=== PATIENT | female | born 2000 | race Caucasian/White ===

== ENCOUNTER 2019-01-09 19:01 | Emergency (ER) | payer OTHER ==
--- OUTSIDE RECORDS SUMMARY | 2019-01-09 19:16 | XMS REPORT | Continuity of Care Document ---
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 Payers Date Identification Numbers Payment Provider Subscriber Effective: 2018 Policy Number: [id number] [facility] Rossi Schwartz PayID: [id number] [place] [address] Advance Directives Description No Information Available Problems Description No Information Family History Date Family Member(s) Observation Comments Father Asthma Mother No Current Problems Social History Type Date Description Comments Sex Unknown Education Currently working on bachelor's Going to [employer] - getting pre-reqs degree done right now, then unsure of plans Marital Status Single Allergies, Adverse Reactions, Alerts Description No Known Drug Allergies Medications Medication Date Status Form Strength Qnty SIG Indications Ordering Provider Flovent HFA Active Aerosol 44mcg/Act 10.600g 2 puffs J45.30 Ham, 019 m twice daily DO Enrique Proair HFA Active Aerosol 108(90Base) 17gm 2 puffs J45.30 Ham , 019 mcg/Act every 4-6 zhane Nunez as DO needed for cough, sob, wheezing Dapsone Active Gel 5% apply to Unknown 000 affected area twice a day Immunizations CPT Code Status Date Vaccine Lot # [id number] Given 12/20/2018 Menactra/Menveo Meningococcal Vaccine [id number] 10036 Given 12/20/2018 Meningococcal B(Bexsero)protn otrMembran Vesicle [id number] Vccn 2 [place] [address] Given 05/02/2002 DTaP Immunization 7 Yrs & Younger 71039 Given 05/03/1999 DTaP Immunization 7 Yrs & Younger 14080 Given 1998 Hepatitis B Vac Ped/Adolescent 3 Dose Schedule 74678 Given 1998 DTaP Immunization 7 Yrs & Younger 22517 Given 1998 DTaP Immunization 7 Yrs & Younger 26974 Given 1998 DTaP Immunization 7 Yrs & Younger 45081 Given 1998 Hepatitis B Vac Ped/Adolescent 3 Dose Schedule 16531 Given 1998 Hepatitis B Vac Ped/Adolescent 3 Dose Schedule Vital Signs Date Vital Result Comment 12/20/2018 10:01am Weight 152.00 lb Heart Rate 80 /min BP Systolic 132 mmHg BP Diastolic 80 mmHg Respiratory Rate 18 /min Height 64 inches 5'4" O2 % BldC Oximetry 13262 % BMI (Body Mass Index) 26.1 kg/m2 Results Description No Information Available Procedures Date Code Description Status 12/20/2018 58213 Brief Emotional/Behav Assessment W/ Scoring Doc Per Completed Standard Inst 12/20/2018 65481 Measure Blood Oxygen Level Single Determination Completed 12/20/2018 15634 Spirometry /PFT With And Without Bronchodialator Completed (Bronchospasm) Encounters Description No Information Available Plan of Treatment Future Appointment(s):01/31/2019 9:15 am - [facility] - Kamini Layne PAZ00.00 Encounter for general adult medical examination without abnoComments:Screening for instructor creeler cancers (cervical, vaginal, vulvar): none needed yetScreening for colon cancer: noreason for early screenRecommend periodic ophtho and dental careHealthy lifestyle encouraged: Sleep target 7-8 hours per dayExercise, target 30 - 60 min moderate to vigorous exercise per day , with 5 days of week aerobic, 2 days per week strength and flexibility. Hydration, target 2.5 qrts per day of total fluids. Diet. Low fat/ cholRecommend annual wellness visit.J45.30 Mild persistent asthma, uncomplicatedNew Medication:Flovent HFA 44 mcg/Act - 2 puffs twice dailyProair HFA 108(90 Base) mcg/Act - 2 puffs every 4-6 hours as needed for cough, sob, wheezingComments:Will try floventAlbuterol prnCall with worsening symptomsFollow up:6 weeks f/u asthma with PFT and Men B #2Z13.89 Encounter for screening for other [id number] Encounter for immunization
[2019-01-09 20:03] VITALS: BP 143/85
--- NOTE | 2019-01-09 20:25 | UC ---
Abdominal Pain Female HPI - HPI Summary HPI Summary: 19 yo female with the acute onset of abd pain that occurred a week ago while driving pain has been constant nausea and anorexia no f/c no vomiting or diarrhea no UTI symptoms no vag d/c or itch pain occasionally radiates to her back has not keep her up at night - History of Current Complaint Chief Complaint: UCAbdominalPain Stated Complaint: NAUSEA Time Seen by Provider: 01/09/19 20:06 Hx Obtained From: Patient Hx Last Menstrual Period: 12/30/18 Onset/Duration: Sudden Onset, Lasting Days Timing: Constant Severity Initially: Mild Severity Currently: Mild Pain Intensity: 3 Pain Scale Used: 0-10 Numeric Location: Diffuse Radiates to: Back Character: Aching Aggravating Factor(s): Nothing Alleviating Factor(s): Nothing Associated Signs and Symptoms: Positive: Negative, Nausea Allergies/Adverse Reactions: Allergies Allergy/AdvReac Type Severity Reaction Status Date / Time No Known Allergies Allergy Verified 01/09/19 20:03 Home Medications: Home Medications Albuterol HFA INHALER* [Ventolin HFA Inhaler*] 2 puff INH Q4H PRN 01/09/19 [ History Confirmed 01/09/19] Dapsone 5 % EX DAILY 01/09/19 [History Confirmed 01/09/19] Fluticasone HFA 110 mcg(NF) [Flovent HFA 110 mcg(NF)] 2 puff INH BID 01/09/19 [ History Confirmed 01/09/19] PMH/Surg Hx/FS Hx/Imm Hx Previously Healthy: Yes - Surgical History Surgical History: None - Family History Known Family History: Positive: Hypertension - Social History Alcohol Use: None Substance Use Type: None Smoking Status (MU): Never Smoked Tobacco Review of Systems All Other Systems Reviewed And Are Negative: Yes Constitutional: Positive: Negative Skin: Positive: Negative Eyes: Positive: Negative ENT: Positive: Negative Respiratory: Positive: Negative Cardiovascular: Positive: Negative Gastrointestinal: Positive: Abdominal Pain, Nausea Genitourinary: Positive: Negative Motor: Positive: Negative Neurovascular: Positive: Negative Musculoskeletal: Positive: Negative Neurological: Positive: Negative Psychological: Positive: Negative Physical Exam Triage Information Reviewed: Yes Appearance: Well-Appearing, No Pain Distress, Well-Nourished Vital Signs: Initial Vital Signs Temp 98.8 F 01/09/19 19:58 Pulse 95 01/09/19 19:58 Resp 17 01/09/19 19:58 BP 143/85 01/09/19 19:58 Pulse Ox 100 01/09/19 19:58 Vital Signs Reviewed: Yes Eyes: Positive: Conjunctiva Clear ENT: Positive: Hearing grossly normal. Negative: Nasal congestion, Nasal drainage, Trismus, Muffled voice, Hoarse voice Neck: Positive: Supple, Nontender, No Lymphadenopathy Respiratory: Positive: Lungs clear, Normal breath sounds, No respiratory distress, No accessory muscle use Cardiovascular: Positive: RRR, No Murmur Abdomen Description: Positive: Soft. Negative: Nontender - see image, Bruit, CVA Tenderness (R), CVA Tenderness (L), Distended, Guarding Bowel Sounds: Positive: Present Pelvic Exam: Positive: External Exam Normal, Other - Pelvic exam done by Jessica CASTILLO, normal ext genitalia, hymen intact, unable to do speculem exam or bimanual. Musculoskeletal: Positive: ROM Intact, No Edema Neurological: Positive: Alert Psychological Exam: Normal Images Front/Back of Body, Lg ([place]): 1 - tender here Abd Pain Female Course/Dx - Differential Dx/Diagnosis Provider Diagnosis: Abdominal pain of unknown cause Discharge - Sign-Out/Discharge Documenting (check all that apply): Patient Departure All imaging exams completed and their final reports reviewed: No Studies - Discharge Plan Condition: Stable Disposition: HOME Patient Education Materials: Abdominal Pain (ED) Referrals: Kamini Layne PA [Primary Care Provider] - 1 Day Additional Instructions: Keep appt with your provider tomorrow I am unsure of the cause of your pain Urine was clear blood work is pending TO ER FOR increased pain fever persistent vomiting - Billing Disposition and Condition Condition: STABLE Disposition: Home
[2019-01-10 10:32] LABS: ABS Basophils 0.1 10^3/ul (0-0.2); ABS Eosinophils 0.1 10^3/ul (0-0.6); ABS Lymphocytes 2.5 10^3/ul (1.0-4.8); ABS Monocytes 0.6 10^3/ul (0-0.8); ABS Neutrophils 5.3 10^3/ul (1.5-7.7); ABS Nucleated RBC 0 10^3/ul; Eosinophil % 0.6 %; Hematocrit 37 % (35-47); Hemoglobin 11.8 g/dl (12.0-16.0); Lymphocyte % 29.3 %; Mean Corpuscular HGB Conc 32 g/dl (31-36); Mean Corpuscular Hemoglobin 25 pg (27-31); Mean Corpuscular Volume 79 fL (80-97); Mean Platelet Volume 8.9 fL (7.4-10.4); Nucleated Red Blood Cells % 0.1; Platelet Count 457 10^3/ul (150-450); Red Blood Count 4.64 10^6/ul (4.00-5.40); Red Cell Distribution Width 15 % (10.5-15); White Blood Count 8.5 10^3/ul (3.5-10.8)
[2019-01-10 10:42] LABS: Albumin 4.9 g/dL (3.2-5.2); Calcium 9.9 mg/dL (8.6-10.3); Total Bilirubin 0.5 mg/dL (0.2-1.0)
[2019-01-10 10:48] LABS: BUN/Creatinine Ratio 13.9 (8-20); EGFR African American 111.2 (>60); EGFR Non-African American 91.9 (>60); Globulin 2.4 g/dL (2-4); Total Protein 7.3 g/dL (6.4-8.9)
--- NOTE | 2019-01-10 14:02 | UC ---
- Progress Note Progress Note: CBC and CMP reviewed. Essentially normal with no concerning findings. Patient to be notified of results. She should follow up with primary care as previously discussed. Course/Dx - Diagnoses Provider Diagnoses: Abdominal pain of unknown cause Discharge - Sign-Out/Discharge Documenting (check all that apply): Post-Discharge Follow Up All imaging exams completed and their final reports reviewed: No Studies - Discharge Plan Condition: Stable Disposition: HOME Patient Education Materials: Abdominal Pain (ED) Referrals: Kamini Layne PA [Primary Care Provider] - 1 Day Additional Instructions: Keep appt with your provider tomorrow I am unsure of the cause of your pain Urine was clear blood work is pending TO ER FOR increased pain fever persistent vomiting - Billing Disposition and Condition Condition: STABLE Disposition: Home
== END 2019-01-09 21:01 | disposition home or self-care (01) ==
LOC: UCCORT 19:01
DX: R10.31 Right lower quadrant pain (principal); R11.0 Nausea; R63.0 Anorexia
CPT/HCPCS: 36415; 80053; 81003; 83690; 84702; 85025; 99201; G0463

== ENCOUNTER 2019-01-18 16:19 | Emergency (ER) | payer OTHER ==
[2019-01-18 16:36] VITALS: BP 126/86
--- NOTE | 2019-01-18 16:39 | UC ---
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 -denies recent activity that worsened pain or exercise or straining. +reproducible pain w/ palpation at pin point spot of complaint -pain /10. non at rest. -not on OCP -no swelling or redness to legs. -no personal h/o DVTs. Mom recently dx'd w/ factor V Leiden def. pt has not been tested. -pain occurs w/ very deep breath, not w/ normal breathing -denies palpitations/racing heart or fast breathing. -never smoked. - History of Current Complaint Chief Complaint: UCChestPain Stated Complaint: CHEST/BACK PAIN WHEN BREATHING Time Seen by Provider: 01/18/19 16:38 Hx Last Menstrual Period: 12/30/18 Pain Intensity: 4 - Allergy/Home Medications Allergies/Adverse Reactions: Allergies Allergy/AdvReac Type Severity Reaction Status Date / Time No Known Allergies Allergy Verified 01/18/19 16:27 Home Medications: Home Medications Escitalopram (NF) [Lexapro 5 mg (NF)] 5 mg PO DAILY 01/18/19 [History Confirmed 01/18/19] Omeprazole 20 mg PO DAILY 01/18/19 [History Confirmed 01/18/19] PMH/Surg Hx/FS Hx/Imm Hx Previously Healthy: Yes - Surgical History Surgical History: None - Family History Known Family History: Positive: Hypertension, Blood Disorder - Mom w/ Factor V Leiden def. likely MGM as well. - Social History Alcohol Use: None Substance Use Type: None Smoking Status (MU): Never Smoked Tobacco Review of Systems All Other Systems Reviewed And Are Negative: Yes Constitutional: Positive: Negative Skin: Positive: Negative Eyes: Positive: Negative ENT: Positive: Negative Respiratory: Positive: Negative. Negative: Shortness Of Breath, Cough Cardiovascular: Positive: Chest Pain. Negative: Palpitations Gastrointestinal: Positive: Negative Genitourinary: Positive: Negative. Negative: Dysuria, Hematuria Motor: Positive: Negative. Negative: Weakness Neurovascular: Positive: Negative Musculoskeletal: Positive: Negative. Negative: Calf Tenderness, Edema, Myalgia Neurological: Positive: Negative Psychological: Positive: Negative Is Patient Immunocompromised?: No Physical Exam Triage Information Reviewed: Yes Appearance: Well-Appearing, No Pain Distress, Well-Nourished - very pleasant. good historians. Vital Signs: Initial Vital Signs Temp 99 F 01/18/19 16:31 Pulse 87 01/18/19 16:31 Resp 16 01/18/19 16:31 BP 126/86 01/18/19 16:31 Pulse Ox 100 01/18/19 16:31 Vital Signs Reviewed: Yes Eye Exam: Normal ENT: Positive: Hearing grossly normal, Pharynx normal, TMs normal, Uvula midline Neck exam: Normal Neck: Positive: Supple, Nontender, No Lymphadenopathy Respiratory Exam: Normal Respiratory: Positive: Lungs clear, Normal breath sounds, No respiratory distress, No accessory muscle use, Other: - tender w/ exact reporduction of pain at rt sternocostal border@ 4-5th rib. movement of arms reporduces pain as well.. Negative: Crackles, Rhonchi, Stridor, Wheezing, Plerual rub Cardiovascular Exam: Normal Cardiovascular: Positive: RRR, No Murmur, Pulses Normal, Brisk Capillary Refill. Negative: Tachycardia Abdominal Exam: Normal Abdomen Description: Positive: Nontender, Soft. Negative: CVA Tenderness (R), Distended, Guarding Bowel Sounds: Positive: Present Musculoskeletal Exam: Normal Musculoskeletal: Positive: Other: - no swelling or tenderness in either UE or LE Neurological Exam: Normal Psychological Exam: Normal Skin Exam: Normal - Assessment/Plan Course Of Treatment: EKG: NSR, nml axis, no AV/IV changes. no ST/T changes. no prev. no S1 Q3, inv T 3 pattern. -no tachycardia or tachypnea. no recent travel , not on OCPs. no leg swelling/tenderness. and pain is reproducible and favor costochonritis. suspicion for PE is very low. although I have recommended she be tested for Factor V Leiden as her mom just tested positive. -they understood me well and are very agreeable w/ this plan - Differential Diagnoses - Chest Pain Differential Diagnosis/HQI/PQRI: Chest Wall, Pulmonary Embolism - Clinical Impression Provider Diagnosis: Costochondral chest pain Discharge - Sign-Out/Discharge Documenting (check all that apply): Patient Departure All imaging exams completed and their final reports reviewed: No Studies - Discharge Plan Condition: Stable Disposition: HOME Prescriptions: methylPREDNISolone [Medrol Dosepak 4 MG*] 4 mg PO DAILY #1 stephanie Patient Education Materials: Costochondritis (ED) Referrals: Kamini Layne PA [Primary Care Provider] - Additional Instructions: -Take ibuprofen 600-800mgs OTC every 8 hrs as needed for pain. We discussed risks of prednisone including but not limited to anxiety, agitation , insomnia, GI upset, elevated blood pressures and blood sugar readings, adrenal crisis and avascular necrosis of the hip. -Make sure to follow up with your PCP in 3 days. -You should go to the ER if your symptoms suddenly worsen, you develop fast heart rate or breathing difficulty or leg swelling/redness. - Billing Disposition and Condition Condition: STABLE Disposition: Home
--- OUTSIDE RECORDS SUMMARY | 2019-01-18 16:52 | XMS REPORT | Continuity of Care Document ---
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 Payers Date Identification Numbers Payment Provider Subscriber Effective: 2018 Policy Number: [id number] [employer] Rossi Schwartz PayID: [id number] [address] [place] [address] Expires: 2018 Policy Number: [id number] [employer] Rashi Schwartz Group Number: [id number] [id number] PayID: [id number] [place] [address] Advance Directives Description No Information Available Problems Description No Information Family History Date Family Member(s) Observation Comments Father Asthma Mother No Current Problems Social History Type Date Description Comments Sex Unknown Education Currently working on bachelor's Going to [employer] - getting pre-reqs degree done right now, then unsure of plans Marital Status Single Allergies, Adverse Reactions, Alerts Description No Known Drug Allergies Medications Medication Date Status Form Strength Qnty SIG Indications Ordering Provider Escitalopram 01/10/ Active Tablets 5mg 30tabs 1 by mouth F41.1 Jitendra Oxalate 2018 every day Enrique DO Omeprazole 01/10/ Active Capsules 20mg 30caps 1 by mouth R10.84 Jitendra, 2019 every day Enrique DO Flovent HFA 12/20/ Active Aerosol 44mcg/Act 10.600 2 puffs J45.30 Jitendra , 2019 gm twice Enrique daily DO Proair HFA 12/20/ Active Aerosol 108(90Base 17gm 2 puffs J45.30 Ham, 2019 ) mcg/Act every 4-6 Enrique, hours as DO needed for cough, sob, wheezing Dapsone / Active Gel 5% apply to Unknown 0000 affected area twice a day Immunizations CPT Code Status Date Vaccine Lot # [id number] Given 12/20/2018 Menactra/Menveo Meningococcal Vaccine [id number] 08618 Given 12/20/2018 Meningococcal B(Bexsero)protn otrMembran Vesicle [id number] Vccn 2 [place] 58[address] Given 07/07/2015 HPV Vaccine (Gardasil) 3 Dose Schedule 52871 Given 07/07/2015 Hepatitis A, Ped/Adolescent 2 Dose Schedule 58977 Given 03/05/2014 HPV Vaccine (Gardasil) 3 Dose Schedule 63780 Given 03/04/2013 HPV Vaccine (Gardasil) 3 Dose Schedule 78429 Given 11/03/2010 Hepatitis A, Ped/Adolescent 2 Dose Schedule 01176 Given 09/24/2009 Menactra/Menveo Meningococcal Vaccine 21540 Given 09/24/2009 Tdap (Adacel) Ages 7 And Above Only 36946 Given 09/29/2008 Varicella (Chicken Pox) Immunization 65415 Given 05/02/2002 IPV / Poliomyelitis Immunization 15203 Given 05/02/2002 MMR Virus Immunization 64221 Given 05/02/2002 DTaP Immunization 7 Yrs & Younger U-PneuC Given 04/24/2001 Pneumococcal Conj (Non Billable) Unspecified 67476 Given 05/03/1999 Hib ACTHiB Vaccine 4 Dose Schedule 50942 Given 05/03/1999 DTaP Immunization 7 Yrs & Younger 32910 Given 01/11/1999 Varicella (Chicken Pox) Immunization 61513 Given 01/11/1999 MMR Virus Immunization 70071 Given 1998 Hepatitis B Vac Ped/Adolescent 3 Dose Schedule 76087 Given 1998 IPV / Poliomyelitis Immunization 43721 Given 1998 DTaP Immunization 7 Yrs & Younger 39968 Given 1998 Hib ACTHiB Vaccine 4 Dose Schedule 40753 Given 1998 IPV / Poliomyelitis Immunization 90949 Given 1998 DTaP Immunization 7 Yrs & Younger 53134 Given 1998 Hib ACTHiB Vaccine 4 Dose Schedule 86467 Given 1998 IPV / Poliomyelitis Immunization 63926 Given 1998 DTaP Immunization 7 Yrs & Younger 53937 Given 1998 Hib ACTHiB Vaccine 4 Dose Schedule 89068 Given 1998 Hepatitis B Vac Ped/Adolescent 3 Dose Schedule 96397 Given 1998 Hepatitis B Vac Ped/Adolescent 3 Dose Schedule Vital Signs Date Vital Result Comment 01/10/2019 1:45pm Body Temperature 99.3 F Weight 152.00 lb Height 64 inches 5'4" BMI (Body Mass Index) 26.1 kg/m2 12/20/2018 10:01am Weight 152.00 lb Heart Rate 80 /min BP Systolic 132 mmHg BP Diastolic 80 mmHg Respiratory Rate 18 /min Height 64 inches 5'4" O2 % BldC Oximetry 81944 % BMI (Body Mass Index) 26.1 kg/m2 Results Description No Information Available Procedures Date Code Description Status 12/20/2018 76149 Brief Emotional/Behav Assessment W/ Scoring Doc Per Completed Standard Inst 12/20/2018 85553 Measure Blood Oxygen Level Single Determination Completed 12/20/2018 88836 Spirometry /PFT With And Without Bronchodialator Completed (Bronchospasm) Encounters Description No Information Available Plan of Treatment Future Appointment(s):02/07/2019 9:30 am - Kamini Layne PA at [facility]2018 - Kamini Layne, PAF41.1 Generalized anxiety disorderNew Medication: Escitalopram Oxalate 5 mg - 1 by mouth every dayComments:? if symptoms related to anxietyWill try lexaproAdvised may take 2-4 weeks to notice improvementDiscussed SE: headache, GI upset, worsening symptomsCall with questions/concernsFollow up:Cancel [place] Schedule appt with me in 1 [id number] Generalized abdominal painNew Medication:Omeprazole 20 mg - 1 by mouth every dayComments:? anxiety, gastritisWill try omeprazoleBland dietCall with worsening /persisting [id number] Body mass index (BMI) 26.0-26.9, adult
== END 2019-01-18 18:57 | disposition home or self-care (01) ==
LOC: UCCORT 16:19
DX: R07.1 Chest pain on breathing (principal)
CPT/HCPCS: 93005; 99212; G0463